=== PATIENT | female | born 1965 | race African-American/Black ===

== ENCOUNTER 2017-12-18 10:44 | Day surgery (SDC) | payer OTHER ==
[2017-12-15 13:41] VITALS: BMI 42.9
--- NOTE | 2017-12-18 14:41 | OP ---
Operative Note - Note: Operative Date: 12/18/17 Pre-Operative Diagnosis: Left renal stone Operation: Left ESWL Findings: 10 mm mid pole left renal stone Post-Operative Diagnosis: Same as Pre-op Surgeon: Anival Galaviz (not complicated) Anesthesia: Fractional
[2017-12-18 14:55] VITALS: TEMP 97.9
[2017-12-18 14:58] VITALS: BP 137/82; PULSE 71
[2017-12-18] MEDS ORDERED: ONDANSETRON 4 MG/2 ML VIAL IVPUSH PRN (15:31)
[2017-12-18] MEDS ORDERED: PROMETHAZINE HCL 25 MG/1 ML VIAL IVPUSH PRN (15:31)
[2017-12-18] MEDS ORDERED: LACTATED RINGERS SOLUTION 1,000 ML IV SCH (15:45)
--- NOTE | 2017-12-18 23:41 | OP ---
DATE OF OPERATION: 12/18/2017 PREOPERATIVE DIAGNOSIS: Left renal stone. POSTOPERATIVE DIAGNOSIS: Left renal stone. PROCEDURE: Left extracorporeal shock wave lithotripsy. ATTENDING: Nba Galaviz M.D. ANESTHESIA: Fractional. OPERATION: Patient was brought in the operating room, placed in a supine position on the operating room table. Ultrasonography and fluoroscopy were performed. A 10-mm left mid pole stone was identified. At this point anesthesia and preoperative antibiotics were administered. Extracorporeal shock wave lithotripsy was then started. 3000 impulses at 20 joules of power was administered to the stone under real time fluoroscopy and ultrasonography. No complications were noted. DISPOSITION: Disposition of the patient to the recovery room. NBA RODRIGUEZ M.D. [id number]
== END 2017-12-18 15:45 | disposition home or self-care (01) ==
LOC: JASU-SURG 10:44
PROVIDERS: ATTEND Urology
PROC: 0TF4XZZ Fragmentation in Left Kidney Pelvis, External Approach (ICD-10-PCS; principal; 2017-12-18 12:30)
DX: N20.0 Calculus of kidney (principal)
CPT/HCPCS: 94760

== ENCOUNTER 2018-05-21 11:57 | Day surgery (SDC) | payer OTHER ==
[2018-05-18 09:33] VITALS: BMI 42.0
[2018-05-21] MEDS ORDERED: MIDAZOLAM HCL 2 MG/2 ML SINGLE DOSE VIAL ONE (14:03)
[2018-05-21] MEDS ORDERED: DEXAMETHASONE SOD PHOSPHATE 4 MG/1 ML VIAL ONE (14:05)
--- NOTE | 2018-05-21 14:22 | OP ---
Operative Note - Note: Operative Date: 05/21/18 Pre-Operative Diagnosis: Right renal stone Operation: Right ESWL Post-Operative Diagnosis: Same as Pre-op Surgeon: Anival Galaviz Anesthesia: Fractional Estimated Blood Loss (mls): 0
[2018-05-21 16:02] VITALS: BP 120/88; PULSE 72; TEMP 97.6
--- NOTE | 2018-06-25 09:44 | OP ---
DATE OF OPERATION: 05/21/2018 DATE OF DICTATION: 06/24/2018 ATTENDING: Nba Rodriguez MD ANESTHESIA: Fractional. PREOPERATIVE DIAGNOSIS: Right renal stone. POSTOPERATIVE DIAGNOSIS: Right renal stone. PROCEDURE: Right extracorporeal shockwave lithotripsy. OPERATION: The patient was brought in the operating room, placed in supine position on the operating table. Ultrasonography and fluoroscopy were performed. A right renal stone was identified; please refer to the shockwave lithotripsy for the size and location. Shockwave lithotripsy was performed without complication. Excellent fragmentation was noted under real-time ultrasonography and fluoroscopy. No complications were noted. DISPOSITION OF THE PATIENT: To recovery room. NBA RODRIGUEZ M.D. [id number]
== END 2018-05-21 15:50 | disposition home or self-care (01) ==
LOC: JASU-SURG 11:57
PROVIDERS: ATTEND Urology
PROC: 0TF3XZZ Fragmentation in Right Kidney Pelvis, External Approach (ICD-10-PCS; principal; 2018-05-21 13:15)
DX: N20.0 Calculus of kidney (principal)
CPT/HCPCS: 94760

== ENCOUNTER 2019-12-30 11:28 | Day surgery (SDC) | payer OTHER ==
[2019-12-27 17:41] VITALS: BMI 43.7
[2019-12-30] MEDS ORDERED: MIDAZOLAM HCL 2 MG/2 ML SINGLE DOSE VIAL ONE ×2 (13:14)
[2019-12-30] MEDS ORDERED: KETOROLAC TROMETHAMINE 30 MG/1 ML VIAL ONE (13:21)
[2019-12-30] MEDS ORDERED: DEXAMETHASONE SOD PHOSPHATE 4 MG/1 ML VIAL ONE (13:21)
--- NOTE | 2019-12-30 14:53 | OP ---
Operative Note - Note: Operative Date: 12/30/19 Pre-Operative Diagnosis: Left renal stone Operation: Left ESWL Findings: 6 mm lower pole Left renal stone Post-Operative Diagnosis: Same as Pre-op Surgeon: Anival Galaviz Anesthesia: Fractional Estimated Blood Loss (mls): 0 Operative Report Dictated: Yes
[2019-12-30] MEDS ORDERED: ONDANSETRON 4 MG/2 ML VIAL IVPUSH PRN (16:17)
[2019-12-30] MEDS ORDERED: PROMETHAZINE HCL 25 MG/1 ML VIAL IVPUSH PRN (16:17)
[2019-12-30] MEDS ORDERED: ONDANSETRON 4 MG/2 ML VIAL ONE (16:21)
[2019-12-30 17:35] VITALS: BP 147/90; PULSE 66; TEMP 96.9
--- NOTE | 2019-12-30 20:42 | OP ---
DATE OF OPERATION: 12/30/2019 PREOPERATIVE DIAGNOSIS: Left renal stone. POSTOPERATIVE DIAGNOSIS: Left renal stone. PROCEDURE: Left extracorporeal shock wave lithotripsy. ATTENDING: Anival James MD ANESTHESIA: Fractional. DESCRIPTION OF PROCEDURE: Patient was brought in the operating room, placed in the supine position on the OR table. Ultrasonography and fluoroscopy were performed. A 6-mm left lower pole renal stone was identified. Anesthesia and preoperative antibiotics were administered. At this point, 2500 impulses at 18 joules of power were administered to the stone without complications. The patient tolerated the procedure very well. Excellent fragmentation of the stone was noted under real time ultrasonography and fluoroscopy. DISPOSITION: The patient was to recovery room. Luis [id number]
== END 2019-12-30 18:15 | disposition home or self-care (01) ==
LOC: JASU-SURG 11:28
PROVIDERS: ATTEND Urology
PROC: 0TF4XZZ Fragmentation in Left Kidney Pelvis, External Approach (ICD-10-PCS; principal; 2019-12-30 14:00)
DX: N20.0 Calculus of kidney (principal)

== ENCOUNTER 2020-01-27 05:16 | Day surgery (SDC) | payer OTHER ==
[2020-01-23 14:37] VITALS: BMI 43.7
[2020-01-27] MEDS ORDERED: MIDAZOLAM HCL 2 MG/2 ML SINGLE DOSE VIAL ONE (11:21)
[2020-01-27] MEDS ORDERED: KETOROLAC TROMETHAMINE 30 MG/1 ML VIAL ONE ×2 (11:21→11:39)
[2020-01-27] MEDS ORDERED: DEXAMETHASONE SOD PHOSPHATE 4 MG/1 ML VIAL ONE (11:21)
--- NOTE | 2020-01-27 12:07 | OP ---
Operative Note - Note: Operative Date: 01/27/20 Pre-Operative Diagnosis: Right renal stone Operation: ESWL Findings: 5 mm mid pole Right renal stone Post-Operative Diagnosis: Same as Pre-op Anesthesia: Regional Estimated Blood Loss (mls): 0 Operative Report Dictated: Yes
[2020-01-27 14:19] VITALS: TEMP 97.8
[2020-01-27 17:09] VITALS: BP 120/70; PULSE 70
--- NOTE | 2020-01-27 20:24 | OP ---
DATE OF OPERATION: 01/27/2020 PREOPERATIVE DIAGNOSIS: Right renal stone. POSTOPERATIVE DIAGNOSIS: Right renal stone. PROCEDURE: Right extracorporeal shockwave lithotripsy. ATTENDING: Nba Galaviz M.D. ANESTHESIA: Fractional. DESCRIPTION OF PROCEDURE: Patient was brought in the operating room, placed in a supine position on the operating room table. Ultrasonography and fluoroscopy were performed. A 5-mm right mid pole stone was identified. Anesthesia and preoperative antibiotics were then administered. Shockwave lithotripsy was then performed. 2500 impulses at 17 joules of power were administered to the stone with excellent fragmentation noted under realtime ultrasonography and fluoroscopy. No complications were noted. The patient tolerated the procedure very well. DISPOSITION: Patient to recovery room. NBA RODRIGUEZ M.D. [id number]
== END 2020-01-27 14:30 | disposition home or self-care (01) ==
LOC: JASU-SURG 05:16
PROVIDERS: ATTEND Urology
PROC: 0TF3XZZ Fragmentation in Right Kidney Pelvis, External Approach (ICD-10-PCS; principal; 2020-01-27 12:15)
DX: N20.0 Calculus of kidney (principal)

== ENCOUNTER 2022-03-07 05:10 | Day surgery (SDC) | payer OTHER ==
[2022-03-03 12:45] VITALS: BMI 43.7
[2022-03-07] MEDS ORDERED: KETAMINE HCL 200 MG/20 ML VIAL ONE (14:28)
[2022-03-07] MEDS ORDERED: MIDAZOLAM HCL 2 MG/2 ML SINGLE DOSE VIAL ONE (14:28)
[2022-03-07] MEDS ORDERED: KETOROLAC TROMETHAMINE 30 MG/1 ML VIAL ONE (14:45)
[2022-03-07 15:06] VITALS: RESP 20
[2022-03-07 17:41] VITALS: BP 178/82; PULSE 62; TEMP 97.3
== END 2022-03-07 17:41 | disposition home or self-care (01) ==
LOC: JASU-SURG 05:10
PROVIDERS: ATTEND Urology
PROC: 0TF4XZZ Fragmentation in Left Kidney Pelvis, External Approach (ICD-10-PCS; principal; 2022-03-07 12:30)
DX: N20.0 Calculus of kidney (principal)

== ENCOUNTER 2024-04-15 04:12 | Day surgery (SDC) | payer OTHER ==
[2024-04-11 14:07] VITALS: BMI 39.4
[2024-04-15 11:55] VITALS: RESP 18
[2024-04-15] MEDS ORDERED: MIDAZOLAM HCL 2 MG/2 ML SINGLE DOSE VIAL ONE ×2 (12:55→12:59)
[2024-04-15] MEDS ORDERED: PROPOFOL 20 ML ONE (12:55)
[2024-04-15] MEDS ORDERED: ONDANSETRON 4 MG/2 ML VIAL ONE (13:07)
[2024-04-15 13:49] VITALS: TEMP 97.2
[2024-04-15 14:35] VITALS: BP 169/94; PULSE 62
== END 2024-04-15 15:05 | disposition home or self-care (01) ==
LOC: JASU-SURG 04:12
PROVIDERS: ATTEND Urology
PROC: 0TF3XZZ Fragmentation in Right Kidney Pelvis, External Approach (ICD-10-PCS; principal; 2024-04-15 13:11)
DX: N20.0 Calculus of kidney (principal)